=== PATIENT | female | born 1965 | race Caucasian/White ===

== ENCOUNTER → 2020-05-09 13:06 | Outpatient (BNVA) | payer OTHER, SELFPAY | PROVIDERS: PCP Internal Medicine; Referring Provider Internal Medicine; Visit Provider Student in an Organized Health Care Education/Training Program | DX: Z76.89 Persons encountering health services in other specified circumstances (principal) ==

== ENCOUNTER → 2020-06-29 13:47 | Outpatient (BNVA) | payer OTHER, SELFPAY | PROVIDERS: PCP Internal Medicine; Visit Provider Student in an Organized Health Care Education/Training Program ==

== ENCOUNTER 2025-02-10 13:43 | Emergency (ER) | payer OTHER, SELFPAY ==
[2025-02-10 13:47] VITALS: BP 139/79; PULSE 70; RESP 18; TEMP 36.5; O2SAT 98; BMI 24.9
--- NOTE | 2025-02-10 13:47 | ED.GENADULT ---
HPI - General Adult General Chief complaint: Animal Bite Stated complaint: dog bite Related Data Home Medications ?Medication ?Instructions ?Recorded ?Confirmed albuterol sulfate 90 mcg/actuation 2 puff inhalation Q6H PRN 05/09/20 aerosol inhaler lorazepam 0.5 mg tablet 0.5 mg PO BEDTIME PRN 05/09/20 Allergies Allergy/AdvReac Type Severity Reaction Status Date / Time No Known Allergies Allergy Verified 02/10/25 13:50 PMFSH Past Medical History Medical History MAXIMO positive Surgical History H/O unilateral oophorectomy History of hysterectomy History of lumbar surgery Social History Social History Alcohol intake: current Advance Directives: No Advance Directives Information Provided: No Physical Exam ED Vital Signs: Vital Signs - 24 hr 02/10/25 13:47 Temperature 97.7 F Pulse Rate 70 Respiratory Rate 18 Blood Pressure 139/79 Pulse Oximetry 98 Oxygen Delivery Method Room Air BMI result Body Mass Index 24.9 Course Course Course Narrative: This is a rapid medical exam performed by Yared Johnson NP: Additional HPI, ROS, PE not included below will be deferred to primary provider. Patient is a 59-year-old right hand dominant female presenting to the ED with complaint of dog bite to left hand. States he appeared to be choking on something so she had her hand in the dog's mouth on the way to the vet to try and keep the airway open. She states the dog ultimately . Dog belonged to her roomate, was UTD on vaccinations. Vet thinking dog had an anaphylactic reaction to something. Took ibuprofen at vet's office. Last Tdap was during covid, patient ok with updating today. Plan: Tdap ordered Patient left the emergency department before myself or any of the other clinicians could review or explain physical exam findings, test results, need or lack there of for additional testing, treatment options, or a treatment plan. Discharge Plan Discharge Clinical Impression: Dog bite Patient Disposition: Left W/O Completing Treatment Prescriptions: No Action lorazepam 0.5 mg tablet 0.5 mg PO BEDTIME PRN albuterol sulfate 90 mcg/actuation HFA aerosol inhaler 2 puff inhalation Q6H PRN
--- OUTSIDE RECORDS SUMMARY | 2025-02-10 15:29 | XMS_ITS | Encounter Summary ---
Author Organization [facility] Address [address] [place] [address] Care Team Providers Care Staff Educator Name Role Phone Apryl Souza MD Primary Care Provider [phone] Encounter Details Date Type Department Care Team (Late st Contact Info) Description 09/16/2019 Scanned Document [facility] [address] [place] [id number] Gabe Knutson MD [address] [address] Social History Tobacco Use Types Packs/Day Years Used Date Smoking Tobacco: Former Smokeless Tobacco: Never Comments:social smoker back in my 2's Alcohol Use Standard Drinks/Week Comments Yes 4 (1 standard drink = 0.6 oz pur e alcohol) social PHQ-2 Answer Date Recorded PHQ-2 Total Score 0 02/09/2019 Comments Unknown Sex and Gender Information Value Date Recorded Sex Assigned at Not on file Legal Sex Female 9:03 AM EDT Gender Identity Not on file Sexual Orientation Not on file documented as of this encounter Plan of Treatment Not on file documented as of this encounter Visit Diagnoses Not on filedocumented in this encounter Care Teams Staff Educator Relationship Specialty Start Date End Date Apryl Souza MD [address] [place] [address] [address] [place] [address] PCP - General 01/03/19 documented as of this encounter
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
--- OUTSIDE RECORDS SUMMARY | 2025-02-10 15:29 | XMS_ITS | Encounter Summary ---
Author Organization [facility] Address [address] [place] [address] Care Team Providers Care Mining Consultant Name Role Phone Apryl Souza MD Primary Care Provider [phone] Encounter Details Date Type Department Care Team ([facility] st Contact Info) Description 01/03/2019 Scanned Document GENERIC EXTERNAL DATA DEPARTMENT Apryl Souza MD [address] [place] [address] Social History Tobacco Use Types Packs/Day Years Used Date Smoking Tobacco: Never Assessed Comments Unknown Sex and Gender Information Value Date Recorded Sex Assigned at Not on file Legal Sex Female 9:03 AM EDT Gender Identity Not on file Sexual Orientation Not on file documented as of this encounter Plan of Treatment Not on file documented as of this encounter Visit Diagnoses Not on filedocumented in this encounter Care Teams Mining Consultant Relationship Specialty Start Date End Date Apryl Souza MD [address] [place] [address] PCP - General 01/03/19 documented as of this encounter
--- OUTSIDE RECORDS SUMMARY | 2025-02-10 15:29 | XMS_ITS | Patient Health Record ---
Author Organization [facility] Address [address] [place] [address] Support Name Relationship Address Phone ARLET NITESH Guarantor Unknown [phone] Reason For Referral No Information Problems Problem Type SNOMED Code ICD Code Onset Dates Problem Status W/U Status Risk Notes Problem Submucous leiomyoma of uterus (02600656) Submucous leiomyoma of uterus (218.0) Active confirmed Diag Problem Excessive and frequent menstruation (039495346) Excessive or frequent menstruation (626.2) Active confirmed Diag Problem Metrorrhagia (77098659) Metrorrhagia (626.6) Active confirmed Major Problem Backache (609990301) Unspecified backache (724.5) Active confirmed Major Plan Of Treatment No Information Insurance Providers Payer Name Payer Address Payer Phone Subscriber Number Group Number Insured Name Patient Relationship to Insured Coverage Start Date Coverage End Date [employer] MEDICARE PPO [address] [place] [address] [phone] [id number] NITESH NICE Self - patient is the insured
== END 2025-02-10 15:43 | disposition left against medical advice (07) ==
PROVIDERS: Emergency Provider Emergency Medicine; PCP Nurse Practitioner Family
DX: T14.8XXA Other injury of unspecified body region, initial encounter (principal); Z53.21 Procedure and treatment not carried out due to patient leaving prior to being seen by health care provider
CPT/HCPCS: 99281

== ENCOUNTER 2025-02-10 19:32 | Emergency (ER) | payer MEDICAID, SELFPAY ==
--- NOTE | ~2025-02-10 | XR_ITS ---
CLINICAL HISTORY: dog bite, pain 4th finger 3 view right hand Comparison: None provided Findings: Bones intact. No dislocations. No significant loss of joint space or osteophytes. No erosions. No radiopaque foreign body. IMPRESSION: 1. No acute findings. This document has been electronically signed by: Al Barton MD on 02/10/2025 20:32:06
[2025-02-10 19:36] VITALS: BP 107/57; PULSE 70; RESP 20; TEMP 36.6; O2SAT 97
--- NOTE | 2025-02-10 21:11 | MHC.EDTECH ---
bilateral hands soaking in saline/betadine solution
--- NOTE | 2025-02-10 21:50 | ED_ITS ---
HPI - Animal Bite General Chief Complaint: Animal Bite Stated Complaint: both hands swelling (was here earlier and LWT) Time Seen by Provider: 02/10/25 21:21 Source: patient Mode of arrival: ambulatory Limitations: no limitations History of Present Illness ED Provider: Dr. Irene Ott HPI narrative: Patient comes to the emergency room complaining of multiple dog bites to both hands. Patient states that earlier today, her neighbor's dog went into a anaphylaxis shock and she stuck both of her hands inside of the dog's mouth trying to keep the airway open. patient states that in the process the dog accidentally bit her multiple times. According to the patient, the dog was her friend's. the dog is up-to-date with all of its immunizations. Patient states that she took ibuprofen but her hands still hurt. Patient states that she went to urgent Care, they gave her some medication / antibiotic, sent to her pharmacy but she did not picked them up. Patient states that this incident happened earlier today in the morning. Almost 12 hours ago. Patient denies fevers or chills. Related Data Home Medications ?Medication ?Instructions ?Recorded ?Confirmed albuterol sulfate 90 mcg/actuation 2 puff inhalation Q 6H PRN 05/09/20 aerosol inhaler lorazepam 0.5 mg tablet 0.5 mg PO BEDTIME PRN Previous Rx's ?Medication ?Instructions ?Recorded acetaminophen 500 mg tablet 500 mg PO Q6H PRN fever or pain 02/10/25 #20 tabs amoxicillin 500 mg-potassium 1 tab PO BID #14 tabs 10/30 clavulanate 125 mg tablet (Augmentin) ibuprofen 600 mg tablet 600 mg PO TID PRN fever or p ain 02/10/25 #20 tabs Allergies Allergy/AdvReac Type Severity Reaction Status Date / Time No Known Allergies Allergy Verified 02/10/25 19:47 Review of Systems Review of Systems: Constitutional : No Weight loss, No Fever, No Chills, No Night Sweats, No Fatigue, No Malaise ENT/Mouth : No Hearing loss, No Ear Pain, No Nasal Congestion, No Sinus Pain, No Hoarseness, No sore throat, No Rhinorrhea, No Swallowing Difficulty Eyes: No Eye Pain, No Swelling, No Redness, No Foreign Body, No Discharge, No Vision Changes Cardiovascular : No Chest Pain, No SOB, No Dyspnea on Exertion, No Orthopnea, No Edema, No Palpitations Respiratory : No Cough, No Sputum, No Wheezing, No Smoke Exposure, No Dyspnea Gastrointestinal : No Nausea, No Vomiting, No Diarrhea, No Constipation, No abdominal Pain, No Hematochezia, No Melena Genitourinary : no irregular bleeding, No Dysuria, No Urinary Frequency, No Hematuria, No Urinary Incontinence, No Urgency, No Flank Pain, No Urinary Flow Changes, No Hesitancy Musculoskeletal : No joint pain, No Myalgias, No Joint Swelling Skin : Complaining of multiple bites to both hands Neuro : No Weakness, No Numbness, No Paresthesias, No Loss of Consciousness, No Dizziness, No Headache Psych : No Anxiety/Panic, No Depression, No SI/HI/AH/VH, No Social Issues, Heme/Lymph: No Bruising, No Bleeding,No Lymphadenopathy Endocrine : No Polyuria, No Polydipsia, No Temperature Intolerance PMFSH Past Medical History Medical History MAXIMO positive Surgical History H/O unilateral oophorectomy History of hysterectomy History of lumbar surgery Social History Social History Alcohol intake: current Advance Directives: No Advance Directives Information Provided: No Do you have a plan to hurt others: No Plan Physical Exam ED Exam Exam: Appearance: Alert. Oriented X3. very anxious Eyes: Pupils equal, round and reactive to light. ENT: Pharynx normal. Neck: Normal inspection. Neck supple. No lymph nodes noted. No crepitus CVS: Normal heart rate and rhythm. Pulses normal. Normal S1 and S2 Respiratory: No respiratory distress. Breath sounds normal. No Wheezing. No rales Abdomen: Soft and nontender. No rigidity. No distention. Skin: Skin warm and dry. Normal skin color. Normal skin turgor. see extremities below Extremities: No lower extremity edema. No Lacerations. No Rash. In bilateral upper extremities, patient has multiple ecchymosis, numerous small puncture wounds closed, patient has an ecchymosis in the dorsum of the left hand. A scratch dana on the front of the forearm Neuro: Oriented X 3. No motor deficit. No sensory deficit. Moving all extremities. No slurred speech. CN 2 through 12 grossly intact Psych: calm, cooperative, normal affect Vital Signs: Vital Signs - 24 hr 02/10/25 19:36 Temperature 97.8 F Pulse Rate 70 Respiratory Rate 20 Blood Pressure 107/57 L Pulse Oximetry 97 Oxygen Delivery Method Room Air BMI result Body Mass Index 30.0 Course Course Course Narrative: patient states that she is up-to-date with her Tdap, got a Booster a proximally in 2020. the dog is up-to-date with immunizations patient went to urgent care today, has not started her antibiotics, patient was given the 1st dose of Augmentin. Patient has multiple small wounds, stitches are not indicated patient has a scratch, U shaped in the forearm on the left, discussed with the patient that this is not streaking especially since she does not have cellulitis in her hand very anxious lady. Medications Administered Discontinued Medications Generic Name Dose Route Start Last Admin Trade Name Freq PRN Reason Stop Dose Admin Amoxicillin/Clavulanate Potassium 875 mg 02/10/25 21:38 02/10/25 21:53 Amoxicillin/Potassium Clav 875 Mg Tablet PO 02/10/25 21:39 875 mg ONCE ONE Administration Ibuprofen 600 mg 02/10/25 21:38 02/10/25 21:53 Ibuprofen 600 Mg Tablet PO 02/10/25 21:39 600 mg ONCE ONE Administration Medical Decision Making Medical Decision Making [facility] Narrative: Patient was given p.o. antibiotics, patient is up-to-date with T booster, the dog is up-to-date with immunizations, family dog, rabies immunizations not indicated. Patient's hands were cleaned thoroughly, patient does have multiple ecchymosis. No signs of cellulitis discussed with the patient that if she has any signs or symptoms of cellulitis, she needs to return to the emergency room. Discharge Plan Discharge Clinical Impression: Dog bite Patient Disposition: Home, Self-Care Instructions: Animal Bite (ED) Additional Instructions: if you see any signs of infection such as fever, chills, significant swelling with redness and warmth to touch, please return to the emergency room. Please follow-up with your primary care physician tomorrow. If you have any worsening or new symptoms, please return to the emergency room or call 911 Prescriptions: New amoxicillin-pot clavulanate [Augmentin] 500-125 mg tablet 1 tab PO BID Qty: 14 0RF acetaminophen 500 mg tablet 500 mg PO Q6H PRN (Reason: fever or pain) Qty: 20 0RF ibuprofen 600 mg tablet 600 mg PO TID PRN (Reason: fever or pain) Qty: 20 0RF No Action lorazepam 0.5 mg tablet 0.5 mg PO BEDTIME PRN albuterol sulfate 90 mcg/actuation HFA aerosol inhaler 2 puff inhalation Q6H PRN Stand Alone Forms: Work/School Release Print Language: Indonesian
[2025-02-10 22:17] VITALS: BP 107/57; PULSE 70; RESP 20; TEMP 36.6; O2SAT 97
== END 2025-02-10 22:18 | disposition home or self-care (01) ==
PROVIDERS: Emergency Provider Emergency Medicine; PCP Nurse Practitioner Family
DX: S61.452A Open bite of left hand, initial encounter (principal); S61.451A Open bite of right hand, initial encounter; W54.0XXA Bitten by dog, initial encounter; Y93.9 Activity, unspecified; Y92.9 Unspecified place or not applicable; Y99.9 Unspecified external cause status
CPT/HCPCS: 73130; 99283

== ENCOUNTER → 2025-02-10 19:55 | Outpatient (BNV) | payer OTHER, SELFPAY | PROVIDERS: Visit Provider Radiology Diagnostic Radiology | DX: M79.644 Pain in right finger(s) (principal) | CPT/HCPCS: 73130 ==